=== PATIENT | male | born 1955 | race Caucasian/White ===

== ENCOUNTER 2017-10-21 15:33 | Emergency (ER) | payer MEDICARE ==
[~2017-10-21 15:33] MED LIST: Sodium Chloride Irrig Solution 250 ML BOT ONE
--- NOTE | 2017-10-21 15:51 | RAD ---
SINGLE LATERAL RADIOGRAPH ELBOW: 10/21/2017 HISTORY: Fall. Trauma. Pain. COMPARISON: None. FINDINGS: There is a comminuted fracture involving the olecranon with proximal retraction/distraction of the pr oximal fracture fragment of approximately 3.6 cm secondary to pull from the triceps insertion. Ortho pedic consultation advised. IMPRESSION: Comminuted proximal right ulnar fracture with proximal displacement/distraction, as above. POS: [facility]
[2017-10-21] MEDS ORDERED: Fentanyl 100 MCG/2 ML VIAL ONE (16:16)
[2017-10-21 16:50] LABS: INR-International Normal Ratio 2.1; PTT 39.9 SEC (22.9-36.1); Prothrombin Time 24.3 SEC (12.0-14.7)
[2017-10-21 16:52] LABS: #Basophils 0.1 thou/uL (0.0-0.2); #Eosinphils 0.1 thou/uL (0.0-0.7); #Lymphocytes 2.3 thou/uL (1.20-3.40); #Monocytes 0.5 thou/uL (0.11-0.59); #Neutrophils 3.8 thou/uL (1.40-6.50); %Basophils 1.6 % (0.0-1.0); %Eosinophils 1.3 % (0.0-10.0); %Lymphocytes 34.3 % (21.0-51.0); %Monocytes 7.5 % (0.0-10.0); %Neutrophils 55.2 % (42.0-75.0); Hemoglobin 8.1 g/dL (14.0-18.0); Mean Corpuscular HGB CONC 31.8 g/dL (32.0-36.0); Mean Corpuscular Hemoglobin 25.8 pg (27.0-31.0); Mean Corpuscular Volume 81.2 fl (80.0-94.0); Mean Platelet Volume 6.6 fL (7.4-10.4); Platelet Count 283 thou/uL (130-400); RBC Distribution Width 16.5 % (11.5-14.5); Red Blood Cell (RBC) Count 3.12 mill/uL (4.70-6.10); White Blood Cell (WBC) Count 6.8 thou/uL (4.8-10.8)
[2017-10-21 16:58] LABS: ALT (SGPT) 9 U/L (8-55); AST (SGOT) 15 U/L (5-34); Albumin 3.4 g/dL (3.4-4.8); Alkaline Phosphatase 54 U/L (40-150); Anion Gap 16 mmol/L (10-20); BUN (Urea Nitrogen) 14 mg/dL (8.4-25.7); Bilirubin, Total 0.2 mg/dL (0.2-1.2); Calc. Creatinine Clearance 0 mL/min (70-130); Calcium 8.7 mg/dL (7.8-10.44); Carbon Dioxide 23 mmol/L (23-31); Chloride 101 mmol/L (98-107); Estimated GFR-MDRD 61; Globulin 2.5 g/dL (2.4-3.5); Glucose 64 mg/dL (80-115); Potassium 4.6 mmol/L (3.5-5.1); Protein, Total 5.9 g/dL (5.8-8.1); Sodium 135 mmol/L (136-145)
--- NOTE | 2017-10-21 17:17 | CT ---
HEAD CT WITHOUT CONTRAST: Date: 10-21-17 Comparison: 07-18-17 History: Fall, on blood thinners. Technique: Serial axial CT imaging at 5 mm intervals from vertex through skull base without contrast. FINDINGS: The imaged paranasal sinuses/mastoid air cells are well aerated. There is atherosclerotic calcificati on of the cavernous carotid arteries. There is no displaced calvarial fracture. There is a circumscri bed lucent lesion within the calvarium within the right frontal region measuring 2.5 cm with no assoc iated soft tissue component. There is no intracranial hemorrhage, midline shift, or mass effect. There is mild diffuse cerebral vo lume loss. Mild periventricular hypodensities suggest small vessel disease. IMPRESSION: 1. Small vessel disease and cerebral volume loss with no displaced calvarial fracture or intracranial hemorrhage. 2. Nonspecific lucent lesions within the calvarium in the right frontal region. 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 Follow up head CT is 6 months is advised to document stability. If more urgent ass essment is clinically warranted, bone scan suggested. Code T POS: [facility]
== END 2017-10-21 16:54 | disposition short-term general hospital (02) ==
LOC: MADERS 15:33
DX: S52.021A Displaced fracture of olecranon process without intraarticular extension of right ulna, initial encounter for closed fracture (principal); E78.00 Pure hypercholesterolemia, unspecified; I10 Essential (primary) hypertension; I48.91 Unspecified atrial fibrillation; I73.9 Peripheral vascular disease, unspecified; M81.0 Age-related osteoporosis without current pathological fracture; F32.9 Major depressive disorder, single episode, unspecified; Z87.891 Personal history of nicotine dependence; Z79.899 Other long term (current) drug therapy; Z79.891 Long term (current) use of opiate analgesic; Z79.01 Long term (current) use of anticoagulants; W01.190A Fall on same level from slipping, tripping and stumbling with subsequent striking against furniture, initial encounter
CPT/HCPCS: 36415; 70450; 80053; 85025; 85610; 85730; 96374; J3010

== ENCOUNTER 2018-09-02 16:13 | Emergency (ER) | payer MEDICARE ==
[2018-09-02] MEDS ORDERED: predniSONE 20 MG TAB ONE (17:29)
[2018-09-02] MEDS ORDERED: predniSONE 10 MG TAB ONE (17:29)
[2018-09-02] MEDS ORDERED: Doxycycline 100 MG CAP ONE (17:35)
--- NOTE | 2018-09-02 18:22 | RAD ---
RADIOGRAPH CHEST 2 VIEWS: 09/02/18 HISTORY: 63-year-old male with cough, fever, and rhonchi. FINDINGS: There is no air space density, pulmonary edema, pleural effusion, pneumothorax, or cardiomegaly. Ther e is a moderate sized retrocardiac midline mass. There is a multilead left subclavian AICD. IMPRESSION: 1. No acute cardiopulmonary findings. 2. Moderate sized hiatal hernia. 3. Automatic implantable cardioverter/defibrillator. shaheed walker POS: [facility]
== END 2018-09-02 18:25 | disposition home or self-care (01) ==
LOC: MADERS 16:13
DX: J20.9 Acute bronchitis, unspecified (principal); E78.00 Pure hypercholesterolemia, unspecified; I73.9 Peripheral vascular disease, unspecified; I48.91 Unspecified atrial fibrillation; F32.9 Major depressive disorder, single episode, unspecified; Z87.891 Personal history of nicotine dependence; Z79.899 Other long term (current) drug therapy
CPT/HCPCS: 71046; 87804; J7506; J7512; J7620

== ENCOUNTER 2019-09-15 18:25 | Inpatient (IN) | payer MEDICARE ==
[2019-09-15] MEDS ORDERED: Apixaban 5 MG TAB PO SCH (21:30)
[2019-09-15] MEDS ORDERED: Atorvastatin Calcium 40 MG TAB PO SCH (21:30)
[2019-09-15] MEDS ORDERED: Citalopram 20 MG TAB PO SCH (21:30)
[2019-09-15] MEDS ORDERED: Temazepam 15 MG CAP PO SCH (21:30)
[2019-09-15] MEDS ORDERED: Carvedilol 12.5 MG TAB PO SCH (21:30)
[2019-09-15] MEDS ORDERED: Furosemide 40 MG TAB PO SCH (21:30)
[2019-09-15] MEDS ORDERED: Gabapentin 300 MG CAP PO SCH (21:30)
[2019-09-16 05:32] LABS: #Basophils 0.1 thou/uL (0.0-0.2); #Eosinphils 0.1 thou/uL (0.0-0.7); #Lymphocytes 2.4 thou/uL (1.20-3.40); #Monocytes 0.8 thou/uL (0.11-0.59); #Neutrophils 5.9 thou/uL (1.40-6.50); %Basophils 0.8 % (0.0-1.0); %Eosinophils 1.2 % (0.0-10.0); %Lymphocytes 25.5 % (21.0-51.0); %Neutrophils 63.5 % (42.0-75.0); Hemoglobin 12.1 g/dL (14.0-18.0); Mean Corpuscular HGB CONC 30.7 g/dL (32.0-36.0); Mean Corpuscular Hemoglobin 27.6 pg (27.0-31.0); Mean Platelet Volume 9.2 fL (7.4-10.4); Platelet Count 151 thou/uL (130-400); RBC Distribution Width 13.6 % (11.5-14.5); Red Blood Cell (RBC) Count 4.37 mill/uL (4.70-6.10); White Blood Cell (WBC) Count 9.3 thou/uL (4.8-10.8)
[2019-09-16 05:47] LABS: ALT (SGPT) 26 U/L (8-55); AST (SGOT) 21 U/L (5-34); Albumin 3.8 g/dL (3.4-4.8); Alkaline Phosphatase 59 U/L (40-110); Anion Gap 13 mmol/L (10-20); BUN (Urea Nitrogen) 10 mg/dL (8.4-25.7); Calc. Creatinine Clearance 111 mL/min (70-130); Calcium 8.7 mg/dL (7.8-10.44); Carbon Dioxide 26 mmol/L (23-31); Chloride 107 mmol/L (98-107); Estimated GFR-MDRD Greater than 90; Globulin 2.4 g/dL (2.4-3.5); Glucose 98 mg/dL (80-115); Protein, Total 6.2 g/dL (5.8-8.1); Sodium 143 mmol/L (136-145)
[2019-09-16] MEDS ORDERED: Potassium Chloride 20 MEQ TAB PO SCH (08:00)
[2019-09-16] MEDS: Carvedilol 12.5 MG TAB PO SCH ×2 (08:42→16:04)
[2019-09-16] MEDS: Apixaban 5 MG TAB PO SCH ×2 (08:43→20:28)
[2019-09-16] MEDS: Aspirin Chewable 81 MG TAB PO SCH (08:43)
[2019-09-16] MEDS: Pantoprazole 40 MG GRANULES PACKET PO SCH (08:45)
[2019-09-16] MEDS: Multivitamin W/ Minerals 1 TAB PO SCH (08:45)
[2019-09-16] MEDS: Gabapentin 300 MG CAP PO SCH ×2 (08:45→20:28)
[2019-09-16] MEDS: Tamsulosin HCl 0.4 MG CAP PO SCH (08:45)
[2019-09-16] MEDS: Furosemide 40 MG TAB PO SCH ×2 (08:45→20:28)
[2019-09-16] MEDS: Potassium Chloride 20 MEQ TAB PO SCH ×2 (09:36→20:27)
--- NOTE | 2019-09-16 11:06 | HP ---
CHIEF COMPLAINT: Weak following a stroke. HISTORY OF PRESENT ILLNESS: The patient is a 64-year-old male, who has a history of atrial fibrillation, cardiomyopathy with ejection fraction of 25%, status post pacemaker with paced rhythm and AICD placement, hypertension, and peripheral vascular disease that required a left voeys-wwk-qthi amputation. The patient was hospitalized at [facility] from 09/10 until 09/15/2019 for acute cerebrovascular accident involving the M1 branch of the middle cerebral artery on the left side. He had presented with sudden onset of right upper extremity weakness and expressive aphasia. His initial CT scan and CTA of the head and neck revealed occlusive thrombus of the left M1 segment of the middle cerebral artery, and within a few hours, his condition was seemed to be one of decline. Neurosurgeon, Dr. Grey Leal, did a mechanical thrombectomy a few hours after his admission on 09/11/2019, restoring the blood flow. He has been left though with a right upper extremity weakness, expressive aphasia, and some dysphagia. He underwent a modified-barium swallow, which showed questionable minimal aspiration on thin liquids. He has been placed on nectar-thickened liquids and pureed diet. He has been left with right upper extremity weakness and difficulty with his speech. Prior to his stroke, he was able to get around in a motorized wheelchair. The patient was seen early on the morning of 09/16/2019. He was awake and alert , but very difficult to understand and could not give me much of any history. PAST MEDICAL HISTORY: Hospitalized at [facility] from 09/10/2019 until 09/15/2019 for an acute cerebrovascular accident involving the M1 branch of the left middle cerebral artery, for which he underwent a mechanical thrombectomy on 09/11, restoring circulation, but leaving him with right upper extremity weakness, expressive aphasia, and mild dysphagia. The patient has a history of hypertension, peripheral vascular disease, for which he has required a left ciplc-vwt-cuhn amputation, chronic atrial fibrillation, cardiomyopathy with an ejection fraction of 25%, has required a pacemaker with a paced rhythm and an AICD. His most recent echocardiogram on 09/11/2019, showed ejection fraction of 55% to 60%, one of three diastolic dysfunction, mildly dilated left atrium, mild mitral regurgitation. The patient also has osteoporosis and has had multiple compression fractures. He has had a retinal hemorrhage of the left eye, leaving him with a chronically dilated left pupil. He is treated for depression and he has trouble with insomnia. He has also had surgery on the right elbow in September 2017. Ymjgw-boc-hkuj amputation of the left leg. Vascular surgery to the right leg. Multiple back surgeries. PRESENT MEDICATIONS: 1. Acetaminophen 650 mg every 4 hours as needed. 2. Eliquis 5 mg b.i.d. 3. Aspirin 81 mg daily. 4. Atorvastatin 40 mg at bedtime. 5. Carvedilol 37.5 mg b.i.d. 6. Citalopram 20 mg daily. 7. Diltiazem 30 mg t.i.d. 8. Furosemide 40 mg b.i.d. 9. Gabapentin 300 mg b.i.d. 10. Theragran-M vitamin 1 a day. 11. Pantoprazole 20 mg daily. 12. Potassium chloride 20 mEq daily. 13. Simvastatin 20 mg daily. 14. Tamsulosin 0.4 mg at bedtime. 15. Temazepam 15 mg at bedtime. ALLERGIES: MORPHINE. REVIEW OF SYSTEMS: CONSTITUTIONAL: The patient has not had any recent fever. HEAD AND NECK: No complaints. PULMONARY: Denies shortness of breath. CARDIOVASCULAR: No chest pain. GI: Presently, on pureed diet with nectar-thickened liquids due to some dysphagia and possible aspiration on thin liquids. : The patient has had trouble with urination, but usually does well on the tamsulosin, presently incontinent. ADLs: Prior to stroke, he was able to feed himself, dress himself, and was mobile with a motorized wheelchair. HABITS: The patient is a former smoker. 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 SOCIAL HISTORY: The patient is , lives with his . CODE STATUS: Full code. PHYSICAL EXAMINATION: GENERAL: Shows a 64-year-old white male, who is sitting up in bed and tries to talk but hard to understand. He is a little dysarthric and seems to have some problem understanding. He does not appear in any acute distress. VITAL SIGNS: Show a temperature of 97.4, pulse 84, respirations 16, O2 saturation 95% on room air, and blood pressure 129/83. HEENT: Head, normocephalic and atraumatic. Eyes, pupils are round. The left pupil is dilated. The right pupil is midposition. Ears, the patient has hearing aids bilateral. Nose, normal. Mouth and throat, normal. NECK: Carotids are equal and strong. No bruits. LUNGS: Clear. HEART: Regular rate. The patient has a pacemaker/AICD in the left upper anterior chest. ABDOMEN: Soft, nontender with no organomegaly. The patient wearing an adult diaper. EXTREMITIES: Lower extremities, no edema. NEUROLOGIC: The patient is alert. His speech is dysarthric. He has some trouble understanding and is not oriented to time or situation. He has weakness in the right upper extremity. He has good strength in the right lower leg. He has had an AK amputation of the left leg. The stump is in good condition. IMPRESSION: 1. Recent acute cerebrovascular accident. a. Hospitalized at [facility] from 09/10/2019 to 09/15/2019 with a thrombosis of the M1 branch of the left middle cerebral artery, for which he underwent a mechanical thrombectomy on 09/11, restoring circulation. b. Leaving the patient with a right upper extremity weakness, dysarthria, confusion, and some mild dysphagia. 2. Atrial fibrillation. a. On rate control and on anticoagulation with Eliquis. b. Status post pacemaker with paced rhythm. 3. Cardiomyopathy. a. History of ejection fraction of 25%. b. Most recent echocardiogram on 09/11/2019, showed ejection fraction of 55 % to 60% with a grade 1/3 diastolic dysfunction and mild dilation of left atrium and mild mitral regurgitation. c. Status post automatic implantable cardioverter-defibrillator. 4. Hypertension. 5. Peripheral vascular disease. a. Status post left vhyhx-mzx-crrz amputation. b. Has had multiple surgeries to the right leg. 6. History of a retinal hemorrhage of the left eye, leaving him with a chronically dilated left pupil. 7. Depression. 8. Generalized weakness. a. Presently nonambulatory with recent cerebrovascular accident, leaving him with a right upper extremity weakness and history of kpfrm-pyp-bbmh amputation of the left leg. 9. Depression. 10. Benign prostatic hyperplasia. PLAN: The patient has been admitted to [facility] for physical therapy, occupational therapy, and speech therapy. We will continue him on the pureed diet with nectar-thickened liquids and assistance with his eating. We will advance him up in chair as tolerated. PT and OT will work with him as well as Speech Therapy. We will stop the simvastatin since he is on atorvastatin. Continue his anticoagulants. Code status, full code thanks. Job ID: [id number] [facility]TDD
[2019-09-16] MEDS: Temazepam 15 MG CAP PO SCH (20:27)
[2019-09-16] MEDS: Atorvastatin Calcium 40 MG TAB PO SCH (20:28)
[2019-09-16] MEDS: Citalopram 20 MG TAB PO SCH (20:28)
[2019-09-16] MEDS ORDERED: Simvastatin 20 MG TAB PO SCH (21:00)
[2019-09-17 05:40] LABS: Anion Gap 13 mmol/L (10-20); BUN (Urea Nitrogen) 18 mg/dL (8.4-25.7); Calc. Creatinine Clearance 108 mL/min (70-130); Calcium 8.8 mg/dL (7.8-10.44); Carbon Dioxide 25 mmol/L (23-31); Chloride 109 mmol/L (98-107); Estimated GFR-MDRD Greater than 90; Glucose 96 mg/dL (80-115); Potassium 3.3 mmol/L (3.5-5.1); Sodium 144 mmol/L (136-145)
[2019-09-17] MEDS: Pantoprazole 40 MG GRANULES PACKET PO SCH (08:33)
[2019-09-17] MEDS: Acetaminophen 325 MG TAB PO PRN ×3 (08:33→17:53)
[2019-09-17] MEDS: Gabapentin 300 MG CAP PO SCH ×2 (08:34→20:31)
[2019-09-17] MEDS: Aspirin Chewable 81 MG TAB PO SCH (08:34)
[2019-09-17] MEDS: Multivitamin W/ Minerals 1 TAB PO SCH (08:35)
[2019-09-17] MEDS: Potassium Chloride 20 MEQ TAB PO SCH ×2 (08:35→20:30)
[2019-09-17] MEDS: Apixaban 5 MG TAB PO SCH ×2 (08:35→20:30)
[2019-09-17] MEDS: Furosemide 40 MG TAB PO SCH ×2 (08:35→20:30)
[2019-09-17] MEDS: Carvedilol 12.5 MG TAB PO SCH ×2 (08:35→17:56)
[2019-09-17] MEDS: Tamsulosin HCl 0.4 MG CAP PO SCH (08:35)
--- NOTE | 2019-09-17 09:09 | PRG ---
DATE OF SERVICE: 09/17/2019 SUBJECTIVE: The patient says he feels better today. Speech therapy is working with him and is trying the VitalStim. The patient said he was able to eat better. OBJECTIVE: GENERAL: The patient is sitting up in bed. He is alert, more talkative, and little easier to understand. He looks better today. VITAL SIGNS: Show a temperature of 98.2, pulse 76, respirations 16, O2 saturation 99% on room air, blood pressure 125/67. LUNGS: Clear. HEART: Regular rate. NEUROLOGIC: The patient is alert and talkative and can understand. The patient is little better. Speech is little more clear. The strength in that right upper extremity is improved. 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 LABORATORY DATA: Shows sodium 144, potassium 3.3, BUN 18, creatinine 0.8, glucose 96. TSH 2.2. ASSESSMENT: 1. Recent acute cerebrovascular accident. a. Hospitalized at [facility] from 09/10/2019 to 09/15/2019 with thrombosis of M1 branch of the left middle cerebral artery, for which he underwent a mechanical thrombectomy on 09/11/2019, restoring circulation. b. Leaving the patient with right upper extremity weakness, dysarthria, and mild dysphagia that is improved as of 09/17/2019. 2. Atrial fibrillation. a. Rate controlled and on anticoagulant with Eliquis. b. Status post pacemaker with a paced rhythm. 3. Cardiomyopathy. a. History of ejection fraction 25%. Most recent echocardiogram on 2019 showed an ejection fraction of 55% to 60% with a grade 1/3. b. Diastolic dysfunction and mild dilation of left atrium and mild mitral regurgitation. c. Status post AICD. 4. Hypertension. 5. Peripheral vascular disease. a. Status post left kdwhj-meq-mhed amputation. b. Has had multiple surgeries to the right leg. 6. History of retinal hemorrhage of the left eye leaving him with chronically dilated left pupil. 7. Depression. 8. Generalized weakness. a. Presently nonambulatory secondary to the recent cerebrovascular accident. Contributed to by the weakness in right upper extremity and the above the knee amputation of the left leg. 9. Depression. 10. BPH. PLAN: Continue present care. Continue PT and OT. [facility] ID[facility] [id number] [facility]
[2019-09-17 11:58] LABS: Hemoglobin A1c 5.1 % (4.0-6.0)
[2019-09-17] MEDS: Temazepam 15 MG CAP PO SCH (20:30)
[2019-09-17] MEDS: Citalopram 20 MG TAB PO SCH (20:30)
[2019-09-17] MEDS: Atorvastatin Calcium 40 MG TAB PO SCH (20:30)
[2019-09-18] MEDS: Carvedilol 12.5 MG TAB PO SCH ×2 (08:44→18:03)
[2019-09-18] MEDS: Gabapentin 300 MG CAP PO SCH ×2 (08:45→20:20)
[2019-09-18] MEDS: Apixaban 5 MG TAB PO SCH ×2 (08:45→20:20)
[2019-09-18] MEDS: Tamsulosin HCl 0.4 MG CAP PO SCH (08:45)
[2019-09-18] MEDS: Pantoprazole 40 MG GRANULES PACKET PO SCH (08:46)
[2019-09-18] MEDS: Acetaminophen 325 MG TAB PO PRN ×2 (08:46→15:58)
[2019-09-18] MEDS: Potassium Chloride 20 MEQ TAB PO SCH ×2 (08:46→20:20)
[2019-09-18] MEDS: Aspirin Chewable 81 MG TAB PO SCH (08:46)
[2019-09-18] MEDS: Multivitamin W/ Minerals 1 TAB PO SCH (08:46)
[2019-09-18] MEDS: Furosemide 40 MG TAB PO SCH ×2 (08:46→20:21)
--- NOTE | 2019-09-18 11:59 | PRG ---
DATE OF SERVICE: 09/18/2019 SUBJECTIVE: The patient said he is doing better. This morning, he is up in the Physical Therapy Department, working his arms. His pain seemed to be well controlled with p.r.n. acetaminophen. OBJECTIVE: GENERAL: The patient is sitting in a wheelchair, working on a bar for strengthening exercises for his upper extremity. He is alert, talkative, still a little hard to understand, still has little trouble expressing himself, but he appears in no distress. VITAL SIGNS: Temperature 97.5, pulse 76, respirations 18, O2 saturation 98% on room air, blood pressure 137/67. LUNGS: Clear. HEART: Regular rate. NEUROLOGIC: The patient is alert. His speech is still a little dysarthric and he has a little trouble to tell me what he is trying to express, probably some element of expressive aphasia also present. He still has some weakness in the right upper extremity, but it has improved. LABORATORY DATA: Hemoglobin A1c 5.1. ASSESSMENT: 1. Recent acute cerebrovascular accident. a. Hospitalized at [facility] from 09/10/2019 to 09/15/2019 for thrombosis of the M1 branch of the left middle cerebral artery, for which he underwent a mechanical thrombectomy on 09/11/2019 with evangelical of circulation. b. Leaving the patient with a right upper extremity weakness, dysarthria, expressive aphasia, and mild dysphagia. Improving as of 09/18/2019. 2. Atrial fibrillation. a. Rate controlled, on anticoagulant with Eliquis. b. Status post pacemaker with paced rhythm. 3. Cardiomyopathy. a. History of ejection fraction of 25%. Echocardiogram on 09/11/2019 showed ejection fraction has improved to 55% to 60% with the grade 1/3 diastolic dysfunction and mild dilation of left atrium. b. Status post AICD. c. No evidence of acute CHF. 4. Hypertension. 5. Peripheral vascular disease. a. Status post multiple surgeries to the right leg. b. Status post above the knee amputation. 6. History of retinal hemorrhage of the left eye leaving him with a chronically dilated pupil. 7. Depression. 8. Generalized weakness. a. Presently nonambulatory secondary to the recent cerebrovascular accident and has history of left sosrk-ore-uces amputation. 9. Benign prostatic hypertrophy. PLAN: Continue present care. Continue PT and OT. Job ID: [id number] [facility]
[2019-09-18] MEDS: Atorvastatin Calcium 40 MG TAB PO SCH (20:20)
[2019-09-18] MEDS: Temazepam 15 MG CAP PO SCH (20:20)
[2019-09-18] MEDS: Citalopram 20 MG TAB PO SCH (20:20)
[2019-09-19] MEDS: Furosemide 40 MG TAB PO SCH ×2 (08:57→20:23)
[2019-09-19] MEDS: Gabapentin 300 MG CAP PO SCH ×2 (08:57→20:24)
[2019-09-19] MEDS: Potassium Chloride 20 MEQ TAB PO SCH ×2 (08:57→20:24)
[2019-09-19] MEDS: Multivitamin W/ Minerals 1 TAB PO SCH (08:57)
[2019-09-19] MEDS: Pantoprazole 40 MG GRANULES PACKET PO SCH (08:57)
[2019-09-19] MEDS: Carvedilol 12.5 MG TAB PO SCH ×2 (08:57→17:10)
[2019-09-19] MEDS: Tamsulosin HCl 0.4 MG CAP PO SCH (08:57)
[2019-09-19] MEDS: Aspirin Chewable 81 MG TAB PO SCH (08:58)
[2019-09-19] MEDS: Apixaban 5 MG TAB PO SCH ×2 (08:58→20:22)
[2019-09-19] MEDS: Citalopram 20 MG TAB PO SCH (20:22)
[2019-09-19] MEDS: Atorvastatin Calcium 40 MG TAB PO SCH (20:22)
[2019-09-19] MEDS: Temazepam 15 MG CAP PO SCH (20:24)
[2019-09-20 05:42] LABS: Platelet Count 177 thou/uL (130-400)
[2019-09-20] MEDS: Multivitamin W/ Minerals 1 TAB PO SCH (08:21)
[2019-09-20] MEDS: Carvedilol 12.5 MG TAB PO SCH ×2 (08:21→17:05)
[2019-09-20] MEDS: Potassium Chloride 20 MEQ TAB PO SCH ×2 (08:22→21:02)
[2019-09-20] MEDS: Tamsulosin HCl 0.4 MG CAP PO SCH (08:22)
[2019-09-20] MEDS: Pantoprazole 40 MG GRANULES PACKET PO SCH (08:22)
[2019-09-20] MEDS: Apixaban 5 MG TAB PO SCH ×2 (08:22→21:02)
[2019-09-20] MEDS: Gabapentin 300 MG CAP PO SCH ×2 (08:22→21:02)
[2019-09-20] MEDS: Furosemide 40 MG TAB PO SCH ×2 (08:22→21:02)
[2019-09-20] MEDS: Aspirin Chewable 81 MG TAB PO SCH (08:22)
[2019-09-20] MEDS: Temazepam 15 MG CAP PO SCH (21:01)
[2019-09-20] MEDS: Atorvastatin Calcium 40 MG TAB PO SCH (21:02)
[2019-09-20] MEDS: Citalopram 20 MG TAB PO SCH (21:02)
[2019-09-21] MEDS: Multivitamin W/ Minerals 1 TAB PO SCH (08:27)
[2019-09-21] MEDS: Furosemide 40 MG TAB PO SCH ×2 (08:27→15:22)
[2019-09-21] MEDS: Tamsulosin HCl 0.4 MG CAP PO SCH (08:27)
[2019-09-21] MEDS: Gabapentin 300 MG CAP PO SCH ×2 (08:27→19:59)
[2019-09-21] MEDS: Carvedilol 12.5 MG TAB PO SCH ×2 (08:28→17:09)
[2019-09-21] MEDS: Aspirin Chewable 81 MG TAB PO SCH (08:28)
[2019-09-21] MEDS: Potassium Chloride 20 MEQ TAB PO SCH ×2 (08:28→17:09)
[2019-09-21] MEDS: Pantoprazole 40 MG GRANULES PACKET PO SCH (08:28)
[2019-09-21] MEDS: Apixaban 5 MG TAB PO SCH ×2 (08:28→19:59)
[2019-09-21] MEDS: Atorvastatin Calcium 40 MG TAB PO SCH (19:59)
[2019-09-21] MEDS: Citalopram 20 MG TAB PO SCH (19:59)
[2019-09-21] MEDS: Temazepam 15 MG CAP PO SCH (19:59)
[2019-09-22] MEDS: Potassium Chloride 20 MEQ TAB PO SCH ×2 (08:17→17:41)
[2019-09-22] MEDS: Pantoprazole 40 MG GRANULES PACKET PO SCH (08:17)
[2019-09-22] MEDS: Carvedilol 12.5 MG TAB PO SCH ×2 (08:17→17:42)
[2019-09-22] MEDS: Apixaban 5 MG TAB PO SCH ×2 (08:18→19:59)
[2019-09-22] MEDS: Gabapentin 300 MG CAP PO SCH ×2 (08:18→19:59)
[2019-09-22] MEDS: Aspirin Chewable 81 MG TAB PO SCH (08:18)
[2019-09-22] MEDS: Furosemide 40 MG TAB PO SCH ×2 (08:19→14:39)
[2019-09-22] MEDS: Multivitamin W/ Minerals 1 TAB PO SCH (08:19)
[2019-09-22] MEDS: Tamsulosin HCl 0.4 MG CAP PO SCH (08:19)
--- NOTE | 2019-09-22 10:34 | PRG ---
DATE OF SERVICE: 09/22/2019 SUBJECTIVE: The patient said he is doing better. He would like to see about change in his diet. Speech Therapy has been called to try to help assess if he could be progressed to maybe a mechanical soft diet with ground meat and also will change him from heart healthy to no added salt. The patient said he is doing better and he wants to go home when feasible. OBJECTIVE: GENERAL: The patient is up in physical therapy room, working on a NuStep, working his arms and his right leg. He is alert, appears very comfortable, in no distress. VITAL SIGNS: His temp is 97.7, pulse 77, respirations 16, O2 saturation 97% on room air, blood pressure 116/62. LUNGS: Clear. HEART: Regular rate. NEUROLOGIC: The dysarthria is better. He is much easier to understand, though still has weakness in right upper extremity, but it is better. LABORATORY DATA: H and H are 13 and 42.4. ASSESSMENT: 1. Recent acute cerebral vascular accident. a. Hospitalized at [facility] from 09/10 to 09/15/2019, for thrombosis of the M1 branch of the left middle cerebral artery for which he underwent a mechanical thrombectomy on 09/11 with temple of circulation. b. The patient with a right upper extremity weakness, dysarthria, expressive aphasia and mild dysphagia, improving as of 09/22/2019. 2. Atrial fibrillation. a. Rate controlled, on anticoagulation with Eliquis. b. Status post pacemaker with a paced rhythm. 3. Cardiomyopathy. a. History of ejection fraction 25%. Echocardiogram on 09/11 showed ejection fraction improved to 55% to 60% with a 1/3 diastolic dysfunction and mild dilation of the left atrium. b. Status post AICD placement. c. No evidence of acute congestive heart failure. 4. Hypertension. 5. Peripheral vascular disease. a. Status post multiple surgeries to the right leg. b. Status post eqeyj-bkb-pwsj amputation. 6. History of retinal hemorrhage to the left eye leaving him with a chronically dilated pupil. 7. Depression, improved. 8. Generalized weakness. a. Presently not ambulatory secondary to recent cerebrovascular accident and history of above the knee amputation on the left. 9. Benign prostatic hypertrophy. PLAN: The patient is improving. We will continue present care and PT and OT. The patient will talk to his and once arrangements are made, we will change the patient to regular diet, no added salt, PT. Speech Therapy will re-evaluate the patient for consideration to see if he can be advanced to mechanical soft with chopped meats. Job ID: [id number] [facility]
[2019-09-22] MEDS: Atorvastatin Calcium 40 MG TAB PO SCH (19:59)
[2019-09-22] MEDS: Temazepam 15 MG CAP PO SCH (19:59)
[2019-09-22] MEDS: Citalopram 20 MG TAB PO SCH (19:59)
[2019-09-23] MEDS: Tamsulosin HCl 0.4 MG CAP PO SCH (09:04)
[2019-09-23] MEDS: Gabapentin 300 MG CAP PO SCH ×2 (09:04→19:59)
[2019-09-23] MEDS: Potassium Chloride 20 MEQ TAB PO SCH ×2 (09:04→17:24)
[2019-09-23] MEDS: Carvedilol 12.5 MG TAB PO SCH ×2 (09:04→17:24)
[2019-09-23] MEDS: Aspirin Chewable 81 MG TAB PO SCH (09:04)
[2019-09-23] MEDS: Apixaban 5 MG TAB PO SCH ×2 (09:04→19:59)
[2019-09-23] MEDS: Multivitamin W/ Minerals 1 TAB PO SCH (09:05)
[2019-09-23] MEDS: Pantoprazole 40 MG GRANULES PACKET PO SCH (09:05)
[2019-09-23] MEDS: Furosemide 40 MG TAB PO SCH ×2 (09:05→15:11)
--- NOTE | 2019-09-23 12:30 | PRG ---
DATE OF SERVICE: 09/23/2019 SUBJECTIVE: Patient said he is doing better. Physical therapy said they have started working with him with weightbearing on the right leg. He is using a walker and hopping. At home, he had used a crutches to walk with but since his stroke, that right arm is not quite strong enough to use the crutches but does seem to be adequate for use of the walker. The patient said he did talk with his and that he is ready to try this at home. Tentatively discharge is planned for 09/25. OBJECTIVE: GENERAL: The patient is just coming back from physical therapy. He is alert, appears in no distress. His speech is better. VITAL SIGNS: His temp is 98.1, pulse 72, respirations 16, O2 saturation 95% on room air, blood pressure 110/58. LUNGS: Clear. HEART: Regular rate. NEUROLOGIC: The patient is alert. He is still a little dysarthric, but it is better. His right upper extremity strength is improving. There is still weakness present. ASSESSMENT: 1. Recent acute cerebral vascular accident. a. Hospitalized at [facility] from 09/10/19 to 09/15/19 for thrombosis of the M1 branch of the left middle cerebral artery for which he underwent a mechanical thrombectomy on 09/11 with buddhist of circulation. b. The patient with a left upper extremity weakness, dysarthria, expressive aphasia, and mild dysphagia that is improving as of 09/23. 2. Atrial fibrillation. a. Rate controlled on anticoagulant with Eliquis. b. Status post pacemaker with a paced rhythm. 3. Cardiomyopathy. a. History of ejection fraction of 25%. Echocardiogram on 09/11/19 showed ejection fraction of 55% to 60% with 1/3 diastolic dysfunction and mild dilation of the left atrium. b. Status post AICD placement. c. No evidence of acute congestive heart failure. 4. Hypertension. 5. Peripheral vascular disease. a. Status post multiple surgeries to the right leg. b. Status post jbzxg-rlk-luyy amputation. 6. History of retinal hemorrhage to the left eye leaving him with a chronically dilated pupil. 7. Depression, improved. 8. Generalized weakness. a. His strength is improving, trying to learn to ambulate with the use of a walker. 9. Benign prostatic hypertrophy. PLAN: Continue PT and OT. Anticipate discharge on 09/25. Job ID: [id number] [facility]
[2019-09-23] MEDS: Temazepam 15 MG CAP PO SCH (19:59)
[2019-09-23] MEDS: Atorvastatin Calcium 40 MG TAB PO SCH (19:59)
[2019-09-23] MEDS: Citalopram 20 MG TAB PO SCH (19:59)
[2019-09-24 05:34] LABS: Hemoglobin 12.6 g/dL (14.0-18.0); Platelet Count 182 thou/uL (130-400)
[2019-09-24] MEDS: Carvedilol 12.5 MG TAB PO SCH ×2 (08:37→17:49)
[2019-09-24] MEDS: Gabapentin 300 MG CAP PO SCH ×2 (08:37→21:22)
[2019-09-24] MEDS: Acetaminophen 325 MG TAB PO PRN (08:37)
[2019-09-24] MEDS: Multivitamin W/ Minerals 1 TAB PO SCH (08:38)
[2019-09-24] MEDS: Potassium Chloride 20 MEQ TAB PO SCH ×2 (08:38→17:50)
[2019-09-24] MEDS: Apixaban 5 MG TAB PO SCH ×2 (08:38→21:22)
[2019-09-24] MEDS: Pantoprazole 40 MG GRANULES PACKET PO SCH (08:38)
[2019-09-24] MEDS: Aspirin Chewable 81 MG TAB PO SCH (08:38)
[2019-09-24] MEDS: Furosemide 40 MG TAB PO SCH ×2 (08:38→14:39)
[2019-09-24] MEDS: Tamsulosin HCl 0.4 MG CAP PO SCH (08:38)
[2019-09-24 13:48] VITALS: BMI 25.6
[2019-09-24] MEDS: Atorvastatin Calcium 40 MG TAB PO SCH (21:22)
[2019-09-24] MEDS: Temazepam 15 MG CAP PO SCH (21:22)
[2019-09-24] MEDS: Citalopram 20 MG TAB PO SCH (21:23)
[2019-09-25 08:15] VITALS: TEMP 98.1
[2019-09-25] MEDS: Potassium Chloride 20 MEQ TAB PO SCH (09:01)
[2019-09-25] MEDS: Carvedilol 12.5 MG TAB PO SCH (09:01)
[2019-09-25] MEDS: Gabapentin 300 MG CAP PO SCH (09:01)
[2019-09-25] MEDS: Apixaban 5 MG TAB PO SCH (09:02)
[2019-09-25] MEDS: Multivitamin W/ Minerals 1 TAB PO SCH (09:02)
[2019-09-25] MEDS: Acetaminophen 325 MG TAB PO PRN (09:02)
[2019-09-25] MEDS: Furosemide 40 MG TAB PO SCH (09:02)
[2019-09-25] MEDS: Tamsulosin HCl 0.4 MG CAP PO SCH (09:02)
[2019-09-25] MEDS: Aspirin Chewable 81 MG TAB PO SCH (09:02)
[2019-09-25] MEDS: Pantoprazole 40 MG GRANULES PACKET PO SCH (09:03)
[2019-09-25 13:51] VITALS: BP 119/61
--- NOTE | 2019-09-26 07:01 | DIS ---
DATE OF ADMISSION: 09/15/2019 DATE OF DISCHARGE: 09/25/2019 Admitted on 09/15/2019 and discharged on 09/25/[address] [facility], [place]. FINAL DIAGNOSES: 1. Recent acute cerebrovascular accident. a. Hospitalized at [facility] from 09/10/2019 to 09/15/2019 for acute thrombus of the M1 branch of the left middle cerebral artery for which he underwent a mechanical thrombectomy on 09/11 with mandaen of circulation. The patient was left with left upper extremity weakness, dysarthria and mild dysphagia with marked improvement as of 09/25. 2. Atrial fibrillation. a. Rate controlled on anticoagulant with Eliquis. b. Status post pacemaker with a paced rhythm. 3. Cardiomyopathy. a. History of an ejection fraction of 25%. Echocardiogram on 09/11 showed ejection fraction of 55% to 60% with 1/3 diastolic dysfunction and mild dilation of the left atrium. b. Status post automatic implantable cardioverter defibrillator pacemaker placement. c. No evidence of acute congestive heart failure. 4. Hypertension. 5. Peripheral vascular disease. a. Status post multiple vascular procedures to the right leg. b. Status post [id number]-[id number]-[id number] amputation of the left leg. 6. History of retinal hemorrhage to the left eye leaving him with a chronically dilated pupil. 7. Depression, controlled. 8. Generalized weakness. a. Improved, walking short distance with the use of a walker. 9. Benign prostatic hypertrophy. 10. Chronic low back pain. HOSPITAL COURSE: Mr. Maravilla is a 64-year-old white male, who has a history of chronic atrial fibrillation for which he required a pacemaker AICD. He has a paced rhythm. The patient also has a cardiomyopathy. Initially, his ejection fraction was only 25%. Repeat echocardiogram showed marked improvement to 55% to 60% with 1/3 diastolic dysfunction. He has an AICD pacemaker. 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 The patient lives at home with his . He gets around with the use of crutches. He has chronic low back pain and has been on hydrocodone to control this and under the care of a pain management physician. The patient was hospitalized at [facility] from 09/10/2019 to 09/15/2019. He was taken there for sudden onset of change in his speech, weakness in his right upper extremity. On evaluation, he was found to have a thrombus in the M1 branch of the left middle cerebral artery. Initially, he was thought to be improving, but then the condition seemed to deteriorate. He was taken to surgery by neurosurgeon, Dr. Grey Leal and underwent a mechanical thrombectomy of the thrombus in the M1 branch of the middle cerebral artery. Flow was restored in that area of circulation, but he was left with a left upper extremity weakness, was very dysarthric and also seemed to have an expressive aphasia and mild dysphagia. His condition stabilized, but he was left weak from the effect of the stroke, difficulty with swallowing. He did undergo a modified barium swallow. There was just a question of a possible aspiration. The patient was transferred to [facility] on 09/15/2019. While in the hospital, Physical Therapy worked with the patient. He did very well on his upper body strength and the strength in his right upper extremity markedly improved. He still has a little weakness with the ability to abduct the arm and little bit of decreased strength with extension and flexion of the arm, but had shown marked improvement. He had excellent manager animal. Therapy did work with him some on ambulation using a walker, which required him to hop since he has had the left AK amputation. He does not have a prosthesis. He was able to ambulate up to 6 feet several times a day with some minimal assistance. His weakness in the right arm prevents him from yet going back to his crutches. His speech also markedly improved where he became much easier to understand, speech therapy worked with him. Initially he was on pureed diet. This was advanced and eventually he was able to tolerate a regular diet with honey thickened liquids. His lungs remained clear throughout his hospitalization. Blood pressure remained under good control. He remained on his routine medicine. LABORATORY DATA: His lab work done on 09/16 showed an H and H of 12.1 and 39.3 with a white cell count of 9300, platelet count of 151. On 09/24, H and H 12.6 and 41.3 and a platelet count of 182. On 09/17, his sodium was 144, potassium 3.3, up from a 3 on 09/16, BUN 18, creatinine 0.8, glucose 96. TSH 2.2. On 09/11, cholesterol 109, triglycerides 79, LDL 46, HDL 47. The patient's condition continued to improve and by 09/25, he felt that he and his could manage things fine at home. Arrangements will be made for Home Health to continue with assisting him and he will return and see his pain management physician. DISPOSITION DIET: Regular diet, no added salt, honey thickened liquids. ACTIVITIES: 1. Up in a chair as tolerated. 2. Ambulate with use of walker with hopping. As strength improves, he may be able to gradually progress to ambulation with crutches. 3. Home Health will see patient and arrange in-home PT/OT and speech therapy. MEDICATIONS: 1. Acetaminophen 325 mg two every 4 hours as needed. 2. Eliquis 5 mg b.i.d. 3. Aspirin 81 mg daily. 4. Atorvastatin 40 mg at bedtime. 5. Carvedilol 37.5 mg b.i.d. 6. Citalopram 20 mg daily. 7. Diltiazem 30 mg t.i.d. 8. Furosemide 40 mg b.i.d. 9. Gabapentin 300 mg b.i.d. 10. Theragran-M one daily. 11. Pantoprazole 20 mg daily. 12. KCl 20 mEq b.i.d. 13. Tamsulosin 0.4 mg daily. 14. Temazepam 15 mg at bedtime. FOLLOWUP: The patient will reschedule and see his pain management doctor for his chronic low back pain. The patient will follow up with myself in 2 weeks with a CBC and basic metabolic panel. CODE STATUS: Full code. Job ID: [id number] MTDD
== END 2019-09-25 13:50 | disposition home or self-care (01) | DRG 57 ==
LOC: MADMS 18:25
PROVIDERS: ADMIT Family Medicine; ATTEND Family Medicine
DX: I69.334 Monoplegia of upper limb following cerebral infarction affecting left non-dominant side (principal); I48.20 Chronic atrial fibrillation, unspecified; I42.9 Cardiomyopathy, unspecified; I69.322 Dysarthria following cerebral infarction; I69.391 Dysphagia following cerebral infarction; I69.320 Aphasia following cerebral infarction; Z95.810 Presence of automatic (implantable) cardiac defibrillator; I10 Essential (primary) hypertension; R13.10 Dysphagia, unspecified; I73.9 Peripheral vascular disease, unspecified; F32.9 Major depressive disorder, single episode, unspecified; N40.0 Benign prostatic hyperplasia without lower urinary tract symptoms; I34.0 Nonrheumatic mitral (valve) insufficiency; Z89.612 Acquired absence of left leg above knee; Z98.890 Other specified postprocedural states
CPT/HCPCS: 36415; 80048; 80053; 83036; 84443; 85014; 85018; 85025; 85049

== ENCOUNTER 2019-10-18 10:52 | Emergency (ER) | payer MEDICARE ==
--- NOTE | 2019-10-18 12:13 | RAD ---
RIGHT ANKLE 3 VIEWS: Date: 10/18/2019 HISTORY: Ankle injury. FINDINGS: There are no signs of fracture, dislocation, or joint effusion. Vascular calcifications are noted. IMPRESSION: No acute changes. POS: [facility]PC
== END 2019-10-18 11:57 | disposition home or self-care (01) ==
LOC: MADERS 10:52
DX: S93.401A Sprain of unspecified ligament of right ankle, initial encounter (principal); K21.9 Gastro-esophageal reflux disease without esophagitis; I50.9 Heart failure, unspecified; I11.0 Hypertensive heart disease with heart failure; E78.00 Pure hypercholesterolemia, unspecified; F32.9 Major depressive disorder, single episode, unspecified; I48.91 Unspecified atrial fibrillation; Z87.891 Personal history of nicotine dependence; Z86.73 Personal history of transient ischemic attack (TIA), and cerebral infarction without residual deficits; Z86.718 Personal history of other venous thrombosis and embolism; Z79.899 Other long term (current) drug therapy; Z79.01 Long term (current) use of anticoagulants; W06.XXXA Fall from bed, initial encounter